=== PATIENT | female | born 1955 | race Caucasian/White ===

== ENCOUNTER 2021-02-20 10:42 | Emergency (ER) | payer BC ==
[~2021-02-20] VITALS: Ht 157.5 cm; Wt 68.9 kg
== END 2021-02-20 14:30 | disposition home or self-care (01) ==
LOC: ER1 10:42
DX: U07.1 COVID-19 (principal); Z23 Encounter for immunization; I10 Essential (primary) hypertension
CPT/HCPCS: 99283; M0245

== ENCOUNTER → 2021-05-12 | Outpatient (CLI) | payer BC | LOC: EXRD 09:35 | DX: K76.0 Fatty (change of) liver, not elsewhere classified (principal); Z90.49 Acquired absence of other specified parts of digestive tract | CPT/HCPCS: 76700 ==